=== PATIENT | female | born 1985 | race Caucasian/White ===

== ENCOUNTER 2017-05-01 07:11 | Day surgery (SDC) | payer BC ==
[~2017-05-01] VITALS: Ht 177.8 cm; Wt 126.1 kg
--- NOTE | 2017-05-01 09:21 | NUR ---
PT REPORTS HAVING NAUSEA. SHAREPOINT ENGINEER NOTIFIED. ZOFRAN IV GIVEN.
--- NOTE | 2017-05-01 10:03 | NUR ---
PT RESTING IN BED WITH PHONE. STATES NAUSEA IS BETTER. PT UPDATED ON POSSIBLE WAITING TIME.
--- NOTE | 2017-05-01 15:10 | NUR ---
05/01/17 1510 Manjula Loera 1252 RESP EVEN AND UNLABORED. PT AWAKE AND REPORTS THE NEED TO HAVE A BOWEL MOVEMENT. NOTCHED BLADE LOADER AND RN HELPED PT ON TO BEDPAN. VSS. 1300 PT REFUSED BEDPAN AND ASKED TO GET OUT OF BED REPEATEDLY. MD AT BEDSIDE. 1303 NOTCHED BLADE LOADER AND RN HELPED PT TO BEDSIDE COMMODE. PT REPORTS LARGE AMOUNT OF PAIN AND THE FEELING OF NEEDED TO HAVE A BOWEL MOVEMENT. 1310 PT IN BAD AND REPORITNG LARGE AMOUNT OF PAIN IN ABD. PT MAONING. 1311 PAIN MEDICAITON GIVEN PER EMAR.
--- NOTE | 2017-05-01 21:19 | OR ---
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 PROCEDURE: Cold knife conization. ANESTHESIA: IV sedation per Shavon Fabian CRNA. IV FLUIDS IN: 1200 mL of lactated Ringer's. ESTIMATED BLOOD LOSS: 50 mL. URINE OUTPUT: 200 mL. FINDINGS: Nulliparous cervix. Conization performed and stitch placed at 12 o'clock. SPECIMEN: Specimen sent to pathology, conization of the endocervical region. PROCEDURE TECHNIQUE: The patient was taken back to the operating room with IV fluids hanging. She was placed on the operating table in supine position, underwent IV sedation per Anesthesia and then was repositioned in Chung stirrups in the dorsal lithotomy position. She was prepped and draped in the normal sterile fashion and a sterile weighted speculum was placed into the vagina. The cervix was easily visualized and single-tooth tenaculum placed into the anterior lip of the cervix. A paracervical block with 10 mL of 1% plain lidocaine was Electronically Signed By: JULIENNE BOLTON MD 05/01/17 2119 PATIENT NAME: SHREYA CAMARENA OPERATIVE REPORT DATE OF : 85 PHYSICIAN: JULIENNE BOLTON MD REPORT #: [id number] REPORT IS CONFIDENTIAL AND NOT TO BE RELEASED WITHOUT AUTHORIZATION [facility] [address] [place] [address] [place] [address] Signed performed with minimal bleeding. 0 chromic stitches were placed at the 3 and 9 o'clock positions for further hemostasis and subsequently scalpel was used to perform conization of the cervix. The specimen was then removed and sent to pathology. Monsel's solution was used and pressure cautery was also used and subsequently Gelfoam for achieving hemostasis. Sponge, needle, and instrument counts were correct. The patient was awakened and went to the recovery room in stable condition. There were no complications. Julienne Bolton MD JKM/MODL /[id number] Electronically Signed By: JULIENNE BOLTON MD 05/01/17 2119 PATIENT NAME: SHREYA CAMARENA OPERATIVE REPORT DATE OF : 85 PHYSICIAN: JULIENNE BOLTON MD REPORT #: [id number] REPORT IS CONFIDENTIAL AND NOT TO BE RELEASED WITHOUT AUTHORIZATION
== END 2017-05-01 14:42 | disposition home or self-care (01) ==
LOC: DS 07:11
PROVIDERS: Obstetrics & Gynecology
PROC: 0UBC7ZX Excision of Cervix, Via Natural or Artificial Opening, Diagnostic (ICD-10-PCS; principal; 2017-05-01 10:00)
DX: N72 Inflammatory disease of cervix uteri (principal); N87.9 Dysplasia of cervix uteri, unspecified; E66.01 Morbid (severe) obesity due to excess calories; E28.2 Polycystic ovarian syndrome; Z68.39 Body mass index [BMI] 39.0-39.9, adult; Z98.890 Other specified postprocedural states; Z79.899 Other long term (current) drug therapy
CPT/HCPCS: 00940; J1100; J1885; J2250; J2405; J2704; J3010; J7120